=== PATIENT | male | born 1985 | race American Indian/Alaskan Native ===

== ENCOUNTER → 2022-06-17 12:58 | Outpatient (BNVA) | payer OTHER, SELFPAY | PROVIDERS: PCP Internal Medicine; Visit Provider Physician Assistant | DX: M25.69 Stiffness of other specified joint, not elsewhere classified (principal); M51.36 Other intervertebral disc degeneration, lumbar region | CPT/HCPCS: 99212 ==

== ENCOUNTER 2022-07-16 12:54 | Outpatient (REF) | payer OTHER, SELFPAY ==
--- NOTE | ~2022-07-16 | XR_ITS ---
EXAMINATION: XR LUMBOSACRAL SPINE WITH OBLIQUES CLINICAL INFORMATION: Intervertebral disc degeneration lumbar region. COMPARISON: None available. TECHNIQUE: AP, both oblique, and lateral views of the lumbar spine. Lateral view of the lumbosacral junction. FINDINGS: There are total disc replacements at L4-L5 and L5-S1. Bone alignment is normal. No instability on flexion views is seen. Disc spaces are otherwise normal. No fracture or dislocation. XR/XR lumbar spine 4V min IMPRESSION: Total disc replacements at L4-L5 and L5-S1. No instability on flexion-extension views.
== END 2022-07-16 12:55 | disposition home or self-care (01) ==
LOC: HO.HOSX 12:54
PROVIDERS: Visit Provider Neurological Surgery
DX: M51.36 Other intervertebral disc degeneration, lumbar region (principal)
CPT/HCPCS: 72110; 99212

== ENCOUNTER 2022-08-15 08:59 | Outpatient (REF) | payer OTHER, SELFPAY ==
--- NOTE | ~2022-08-15 | XR_ITS ---
EXAMINATION: XR LUMBOSACRAL SPINE WITH OBLIQUES CLINICAL INFORMATION: Intervertebral disc degeneration COMPARISON: 07/16/2022 TECHNIQUE: AP, both oblique, and lateral views of the lumbar spine. Lateral view of the lumbosacral junction. FINDINGS: Patient is status post total discs replacement with prosthesis at the level of L4-L5 and L5-S1. There is straightening of lumbar lordosis. Vertebral bodies are well aligned and the rest of discs are well preserved. Pedicles are intact. Soft tissues unremarkable. XR/XR lumbar spine 4V min IMPRESSION: Well-positioned discs prosthesis.
== END 2022-08-15 09:00 | disposition home or self-care (01) ==
LOC: HO.HOSX 08:59
PROVIDERS: Visit Provider Physician Assistant
DX: M51.36 Other intervertebral disc degeneration, lumbar region (principal)
CPT/HCPCS: 72110

== ENCOUNTER 2022-12-24 13:12 | Outpatient (REF) | payer MEDICARE, MEDICAID, SELFPAY ==
--- NOTE | ~2022-12-24 | XR_ITS ---
EXAMINATION: XR LUMBOSACRAL SPINE WITH OBLIQUES CLINICAL INFORMATION: Disc degeneration COMPARISON: 08/15/2022, 07/29/2022 TECHNIQUE: AP, lateral views of the lumbar spine and lumbosacral junction inclusive of flexion and extension views. 4 views total. FINDINGS: Mild levoscoliosis of the lumbar spine. Redemonstration of total disc replacements at L4-L5 and L5-S1. Disc spaces are otherwise preserved. Alignment preserved on flexion and extension views. XR/XR lumbar spine 4V min IMPRESSION: Total disc replacements at L4-L5 and L5-S1. Alignment preserved on flexion and extension views.
== END 2022-12-24 13:13 | disposition home or self-care (01) ==
LOC: HO.HOSX 13:12
PROVIDERS: PCP Internal Medicine; Visit Provider Neurological Surgery
DX: M51.36 Other intervertebral disc degeneration, lumbar region (principal)
CPT/HCPCS: 72110; 99212

== ENCOUNTER 2022-12-24 13:12 | Outpatient (AMB) | payer MEDICARE, MEDICAID, SELFPAY ==
--- NOTE | 2022-12-24 13:21 | MHC.OFFVIS ---
Intake Intake Visit Reasons: Back pain Junior Engineer Required: No Assessment & Plan Assessment & Plan (1) Lumbar degenerative disc disease: Code(s): M51.36 - Other intervertebral disc degeneration, lumbar region Plan Dear colleague On 12/24/2022, saw for 6 months follow-up your patient Magda for kishor jama. He status post total disc replacement L5-S1 and L4-5 for intractable low back pain. He is doing very well. He had a recent fall from the couch which gave him pain on the outside of his hips right more than left. I told him that this should resolve on its own. Today's x-ray showed good position of the disc prosthesis. He will follow-up in 6 months with an x-ray. Jacoby Anne MD, PhD Spine Fellowship Trained Neurosurgeon Director, [facility] Orders: Orders XR lumbar spine 4V min Today M51.36 - Other intervertebral disc degeneration, lumbar region Coding Level of Care Code Est Pt Level 2 (07385) Diagnoses Lumbar degenerative disc disease M51.36
== END 2022-12-24 13:55 | disposition home or self-care (01) ==
PROVIDERS: PCP Internal Medicine; Visit Provider Neurological Surgery
DX: M51.36 Other intervertebral disc degeneration, lumbar region (principal)
CPT/HCPCS: 99212

== ENCOUNTER 2023-01-16 15:34 | Outpatient (REF) | payer MEDICARE, SELFPAY | END 2023-01-16 15:35 | disposition home or self-care (01) | LOC: HO.HOSX 15:34 | PROVIDERS: Visit Provider Neurological Surgery | DX: Z13.89 Encounter for screening for other disorder (principal) ==

== ENCOUNTER 2023-06-03 13:18 | Outpatient (AMB) | payer MEDICARE, MEDICAID, SELFPAY ==
--- NOTE | 2023-06-03 13:56 | A.SPINEOV_ITS ---
Intake Intake Visit Reasons: 6 month f/u with Xray Intake Note: Mr. Patel is here today for 6 month F/u Consulting Services Project Manager Required: No Assessment & Plan Assessment & Plan (1) S/P lumbar spinal arthrodesis: Code(s): Z98.1 - Arthrodesis status Plan Kishor comes in today as a follow-up patient after having a previous L4-5 and L5-S1 complete arthrodesis completed by our service. He did very well postoperatively but had a fall that exacerbated some radiculopathy in his lower extremities. As a result of this Dr. Anne prescribed him the tincture of time, hoping that this just exacerbated some residual pain. The patient was seen today after 6 months and is doing very well. He reports that his pain has reduced down to what he describes as a 2/10, he is regained much of his mobility. He no longer suffers from shooting radiculopathy down his legs. He states that this is the 1st time in many years that his pain has been under a 5/10. 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 I also reviewed his x-ray imaging during his visit today, which shows stable placement of arthrodesis at L4-5 and L5-S1. No change from previous imaging. Total amount of time spent in this visit was 20 minutes in discussion of symptoms, X-ray imaging results and subsequent plan of care Miguel A Anne MD,PhD [facility] Coding Level of Care Code Global (91194) Diagnoses S/P lumbar spinal arthrodesis Z98.1
== END 2023-06-03 14:09 | disposition home or self-care (01) ==
PROVIDERS: PCP Internal Medicine; Visit Provider Neurological Surgery
DX: Z98.1 Arthrodesis status (principal)
CPT/HCPCS: 99213

== ENCOUNTER → 2023-06-03 13:18 | Outpatient (BNVA) | payer MEDICARE, MEDICAID, SELFPAY | PROVIDERS: Visit Provider Neurological Surgery ==

== ENCOUNTER 2023-06-03 13:21 | Outpatient (REF) | payer MEDICARE, MEDICAID, SELFPAY ==
--- NOTE | ~2023-06-03 | XR_ITS ---
EXAMINATION: XR LUMBOSACRAL SPINE WITH OBLIQUES CLINICAL INFORMATION: Low back pain. COMPARISON: Lumbar spine 12/24/2022. TECHNIQUE: AP, lateral, flexion and extension views of the lumbar spine. Lateral view of the lumbosacral junction. FINDINGS: There is maintained lumbar lordosis. There are multiple disc prosthesis at the L4-L5 and L5-S1 disc levels. The rest of the disc heights are normal. On flexion and extension views, there is no significant change in the prosthesis alignment compared to neutral position. The rest the of disc levels are unremarkable. The vertebral heights and alignment is maintained normal. No lytic or sclerotic process seen. Paravertebral soft tissues are normal. XR/XR lumbar spine 4V min IMPRESSION: Moveable disc prosthesis at the L4-L5 and L5-S1 disc levels. There is no significant change in alignment of the prosthesis on flexion and extension views. No osseous listhesis seen at any of the [place] disc levels.
== END 2023-06-03 13:22 | disposition home or self-care (01) ==
LOC: HO.HOSX 13:21
PROVIDERS: Visit Provider Neurological Surgery
DX: M51.36 Other intervertebral disc degeneration, lumbar region (principal); Z98.1 Arthrodesis status
CPT/HCPCS: 72110; 99212

== ENCOUNTER 2024-08-18 13:57 | Outpatient (AMB) | payer MEDICARE, MEDICAID, SELFPAY ==
--- NOTE | 2024-08-18 14:00 | A.SPINEOV_ITS ---
Intake Visit Reasons: follow up Intake Note: Mr. Patel is here today for a F/u. 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 He underwent L4-5, L5-S1 artificial disc replacement a few years ago. He was taking a car ride a few weekends ago and had tremendous amounts of pain afterwards from prolonged sitting. It seems to have eased off a bit now. No pain radiating down the legs. He is more comfortable and at this point is mostly on the mend but was very worried when it happened. He still does get chronic low back pain with occasional flare-ups but this 1 was particularly worse. His exam is otherwise benign with no motor deficits in his gait is normal. I reassured him that this might just be something he will deal with from time to time with prolonged sitting. I did give him a note to get out of Jury duty because of the prolonged sitting that will be required. If the pain continues, we can always get set of x-rays were consider an MRI. Total amount of time spent in this visit was 20 minutes in discussion of symptoms, and subsequent plan of care Daniele Anne MD,PhD [facility] Coding Level of Care Code Est Pt Level 3 (52250) Diagnoses Lumbar degenerative disc disease M51.36
--- OUTSIDE RECORDS SUMMARY | 2024-08-18 16:33 | XMS_ITS | Clinical Summary ---
Author Organization [address] Address [address] [place] [phone] Phone Care Team Providers Care Manager Of Information Name Role Phone Jose G Laurent MD Primary Care Provider Allergies Active Allergy Reactions Criticality Noted Date Comments Levonorgestrel-Ethinyl Estrad 2008 Medications acetaminophen (TYLENOL 8 HOUR) 650 mg 8 hr tablet Take 1 tablet (650 mg total) by mouth every 8 (eight) hours if needed. 06/22/2023 Active cholecalciferol (VITAMIN D-3) 50 mcg (2,000 unit) tablet Take 1 tablet (2,000 Units total) by mouth 3 (three) times a week. 06/22/2023 Active gabapentin (NEURONTIN) 300 mg capsule Take 1 capsule (300 mg total) by mouth 2 (two) times a day. 60 capsule 1 02/25/2024 Active cyclobenzaprine (FLEXERIL) 10 mg tablet Take 1 tablet (10 mg total) by mouth at bedtime as needed for muscle spasms. 30 tablet 04/04/2024 Active ibuprofen (ADVIL,MOTRIN) 600 mg tablet TAKE 1 TABLET BY MOUTH EVERY 8 HOURS NEEDED FOR PAIN 270 tablet 1 05/31/2024 Active ergocalciferol (VITAMIN D-2) 1,250 mcg (50,000 unit) capsule Take 1 capsule (50,000 Units total) by mouth 1 (one) time per week. 12 capsule 05/17/2024 08/10/19 25 Active Problems Problem Noted Date Diagnosed Date Atypical mole 01/19/2023 Vitamin D deficiency 01/19/2023 Insomnia 01/19/2023 Spondylosis of lumbar region without myelopathy or radiculopathy 01/19/2023 Asthma 01/29/2017 Lumbar disc herniation with radiculopathy 2016 Immunizations Name Administration Dates Next Due Tdap Tetanus diptheria acell ular pertussis (Boostrix; Adacel) 7yo and older 08/23/2018 Surgical History Surgery Date Site/Laterality Comments OTHER SURGICAL HISTORY 2016 PROCEDURE: HISTORY OTHER; COMMENT: Lumbar disc surgery Dr. barakat 2016 BACK SURGERY PROCEDURE: HISTORICAL BACK SURGERY Medical History Medical History Date Comments Asthma 01/29/2017 DX:Asthma Backache DX:Backache Family History Medical History Relation Name Comments Hypertension Father Asthma Mother Other: dvt Paternal Grandmother Diabetes Neg Hx Other cancer Neg Hx Relation Name Status Comments Father Alive Mother Alive Paternal Grandmother Alive Social History Tobacco Use Types Packs/Day Years Used Date Smoking Tobacco: Every Day Cigarettes Smokeless Tobacco: Never Tobacco Cessation:Ready to Q uit: Not Asked; Counseling Given: Not Answered Alcohol Use Standard Drinks/Week Comments No 0 (1 standard drink = 0.6 oz pur e alcohol) Sex and Gender Information Value Date Recorded Sex Assigned at Male 05/31/2024 8:42 PM EDT Legal Sex Male 3:49 AM EST Gender Identity Male 05/31/2024 8:42 PM EDT Sexual Orientation Straight 05/31/2024 8: 42 PM EDT Obstetrics History Last Filed Vital Signs Vital Sign Reading Time Taken Comments Blood Pressure 100/70 04/04/2024 4:04 PM EST Pulse 76 04/04/2024 3:36 PM EST Temperature 36.6 ??C (97.8 ??F) 04/04/2024 3:36 PM ES T Respiratory Rate 14 04/04/2024 3:36 PM EST Oxygen Saturation - - Inhaled Oxygen Concentration - - Weight 56.2 kg (124 lb) 04/04/2024 3:36 PM EST Height 170.2 cm (5' 7 ) 06/22/2023 12:37 PM EDT Body Mass Index 19.42 06/22/2023 12:37 PM EDT Plan of Treatment Upcoming Encounters Date Type Department Care Team (Late st Contact Info) Description 08/29/2024 9:45 AM EDT Office Visit Adult Medicine [address] [phone] Roma Maxwell PA [address] [place] [address] 04/10/2025 4:00 PM EST Office Visit Adult [address] [phone] Roma Maxwell PA [address] [place] [address] Health Maintenance Due Date Last Done Comments Hepatitis B Vaccines (1 of 3 - 19+ 3-dose series) 2004 Pneumococcal Vaccine: Pediatrics (0 to 5 Years) and At-Risk Patients (6 to 64 Years) (1 of 2 - PCV) 2004 HIV Screening 02/16/2022 Hepatitis C Screening 02/16/2022 Medicare Annual Wellness Visit 02/16/2022 Social Influencers of Health Screening 02/16/2022 Depression Screening 04/25/2023 04/25/2022 COVID-19 Vaccine ( - 2023-2 5 season) 2023 Influenza Vaccine (Season Ended) 2024 DTaP,Tdap,and Td Vaccines (2 - Td or Tdap) 08/23/2028 08/23/2018 Cholesterol Screening (Lipid Panel) 05/13/2029 05/13/2024, 10/01/2022 HIB Vaccines Aged Out No longer eligi ble based on patient's age to complete this topic HPV Vaccines Aged Out No longer eligi ble based on patient's age to complete this topic Hepatitis A Vaccines Aged Out No long er eligible based on patient's age to complete this topic IPV Vaccines Aged Out No longer eligi ble based on patient's age to complete this topic MMR Vaccines Aged Out No longer eligi ble based on patient's age to complete this topic Meningococcal ACWY Vaccine Aged Out N o longer eligible based on patient's age to complete this topic Meningococcal B Vaccine Aged Out No l onger eligible based on patient's age to complete this topic RSV Immunization Patients Under 20 months Aged Out No longer eligible b ased on patient's age to complete this topic Varicella Vaccines Aged Out No longer eligible based on patient's age to complete this topic Procedures Procedure Name Priority Date/Time Associated Diagnosis Comments LIPID PANEL WITH REFLEX TO DIRECT LDL Routine 05/13/2024 9:20 AM EST Adult general medical examination Vitamin D deficiency Screening for diabetes mellitus Screening cholesterol level Mixed hyperlipidemia DEPRESSION SCREENING Routine 04/25/2022 from Last 3 Months or Most Recently Relevant to Health Maintenance Results * Lipid panel with reflex to direct LDL (05/13/2024 9:20 AM EST) Cholesterol 170 0 - 200 mg/dL LAB CHEMISTRY METHOD 05/13/2024 4:07 PM EST [facility] Triglycerides 91 0 - 150 mg/dL LAB CHEMISTRY METHOD 05/13/2024 4:07 PM EST [facility] HDL 54 >=40 mg/dL LAB CHEMISTRY METHOD 05/13/2024 4:07 PM [facility] LDL Calculated 98 0 - 100 mg/dL LAB CHEMISTRY METHOD 05/13/2024 4:07 PM EST [facility] VLDL Cholesterol Robinson 18.2 mg/dL LAB CHEMISTRY METHOD 05/13/2024 4:07 PM [facility] Non HDL Chol. (LDL+VLDL) 116 <145 mg/dL LAB CHEMISTRY METHOD 05/13/2024 4:07 PM [facility] Chol/HDL Ratio 3.1 0.0 - 4.4 LAB CHEMISTRY METHOD 05/13/2024 4:07 PM [facility] Blood Venous blood specimen / Unknown Venipuncture / Unknown 05/13/2024 9:20 AM EST 05/13/2024 9:20 AM EST Roma COWAN LAB BLOOD ORDERABLES Fin al Result [facility] [address] [place] [address], * Depression Screening (04/25/2022) Depression Screening abstracted us Historical Provider HEALTH MAINTENANCE Final Result from Last 3 Months or Most Recently Relevant to Health Maintenance Insurance MEDICAID - [place] [employer] MEDICARE Care Teams Manager Of Information Relationship Specialty Start Date End Date Jose G Laurent MD [address] [place] [phone] PCP - General 02/20/22
== END 2024-08-18 14:44 | disposition home or self-care (01) ==
LOC: HO.HNS 13:58
PROVIDERS: PCP Internal Medicine; Visit Provider Physician Assistant
DX: M51.369 Other intervertebral disc degeneration, lumbar region without mention of lumbar back pain or lower extremity pain (principal)
CPT/HCPCS: 99213

== ENCOUNTER → 2024-08-18 13:57 | Outpatient (BNVA) | payer MEDICARE, MEDICAID, SELFPAY | PROVIDERS: PCP Internal Medicine; Visit Provider Physician Assistant | DX: M51.360 Other intervertebral disc degeneration, lumbar region with discogenic back pain only (principal) | CPT/HCPCS: 99212 ==

== ENCOUNTER 2025-03-13 13:41 | Outpatient (AMB) | payer MEDICARE, MEDICAID, SELFPAY ==
--- NOTE | 2025-03-13 13:44 | A.SPINEOV_ITS ---
Intake Visit Reasons: LBP Intake Note: Mr. Patel is here today c/o low back pain. 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 He underwent a total disc arthroplasty of the lumbar spine at L4-5 and L5-S1 about 3 years ago. He reports that he was reaching down to help his children out of a room and just lightly pulled 1 of the children and immediately felt acute onset of back pain. He describes it has being up in his ribs, radiating out to the front, a squeezing sensation like could not catch his breath. Then in his legs would not hold him up and his son had to help him get to a spot where he could sit down. Gradually the symptoms went away after he tried some steroids and anti-inflammatories. Things returned mostly to normal, he is still having some pain more in the lumbar region and if he takes her real deep breath he can feel the pain around his ribs. On exam he looks comfortable, he can stand and ambulate without any focal deficits. I sent him for set of x-rays today and the implants look good, there is no shifting or signs that anything has moved from the position it was during his last x-ray about a year ago. There was no signs of auto fusion. The disc above his implants looks great and I do not see any evidence of any adjacent segment issues. I think what happened is that he strained a muscle in the middle of his back and it cause him inflammation around the front of his ribs, and down into his low back. It seems to be better now in his x-rays are reassuring. He has had a similar event happen previously, and it went away on its own as well. I think this will go away similarly. Total amount of time spent in this visit was 20 minutes in discussion of symptoms, lumbar x-ray imaging results and subsequent plan of care Daniele Anne MD,PhD [facility] Orders: Orders XR lumbar spine 4V min Today M51.36 - Other intervertebral disc degeneration, lumbar region, Z98.1 - Arthrodesis status Coding Level of Care Code Est Pt Level 3 (20626) Diagnoses Lumbar degenerative disc disease M51.36 S/P lumbar spinal arthrodesis Z98.1
--- OUTSIDE RECORDS SUMMARY | 2025-03-13 15:54 | XMS_ITS ---
Author Name [facility] Organization Unknown Care Team Organization Name Specialty Phone Email Start Date End Da te [facility] Jose G Laurent Primary Care 05/21/202210/14 [facility] Beti Hinton Primary Care 01/21/2022
--- OUTSIDE RECORDS SUMMARY | 2025-03-13 15:54 | XMS_ITS | Clinical Summary ---
Author Organization [facility], Address [address] [place] [address] Phone Care Team Providers Care Product Support Engineer Name Role Phone Jose G Laurent MD Primary Care Provider [phone] Allergies Active Allergy Reactions Criticality Noted Date Comments Pollen Extract 05/13/2022 Medications gabapentin (NEURONTIN) 300 MG capsule Take 300 mg by mouth 03/07/2022 Active acetaminophen (TYLENOL 8 HOUR) 650 MG 8 hr tablet Take 1 tablet by mouth every 8 (eight) hours if needed 03/07/2022 Active ibuprofen (ADVIL,MOTRIN) 800 MG tablet Take 800 mg by mouth in the morning and 800 mg in the evening and 800 mg before bedtime. 07/23/2020 Active methocarbamol (ROBAXIN) 500 MG tablet Take 1 tablet by mouth in the morning and 1 tablet at noon and 1 tablet in the evening. 03/07/2022 Active amitriptyline (ELAVIL) 25 MG tablet Take 25 mg by mouth 04/25/2022 Active gabapentin (NEURONTIN) 300 MG capsule Take 300 mg by mouth 05/09/2022 Active ibuprofen (ADVIL,MOTRIN) 600 MG tablet Take 600 mg by mouth every 6 (six) hours if needed 05/02/2022 Active nicotine (NICODERM CQ) 14 MG/24HR PLACE 1 PATCH ONTO THE SKIN EVERY 24 HOURS. 04/29/2022 Active Active Problems Problem Noted Date Diagnosed Date H/O Spinal surgery 12/28/2017 Tobacco user 12/28/2017 Asthma 01/29/2017 Lumbar disc prolapse with radiculopathy 06/13/19 17 Social History Tobacco Use Types Packs/Day Years Used Date Smoking Tobacco: Never Assessed Sex and Gender Information Value Date Recorded Sex Assigned at Not on file Legal Sex Male 11:03 AM EST Gender Identity Not on file Sexual Orientation Not on file Last Filed Vital Signs Vital Sign Reading Time Taken Comments Blood Pressure 127/79 05/15/2022 10:37 AM EST Pulse 78 05/15/2022 10:37 AM EST Temperature 36.3 C (97.4 F) 05/15/2022 10:37 AM EST Respiratory Rate - - Oxygen Saturation 100% 05/15/2022 10:37 AM EST Inhaled Oxygen Concentration - - Weight 55.3 kg (122 lb) 05/15/2022 10:37 AM EST Height 170.2 cm (5' 7 ) 05/15/2022 10:37 AM EST Body Mass Index 19.11 05/15/2022 10:37 AM EST Plan of Treatment Health Maintenance Due Date Last Done Comments Hepatitis B Vaccine (1 of 3 - 19+ 3-dose series) 2004 Influenza Vaccine (#1) 2024 Pneumococcal Vaccine: Peds ( 0 to 5 Years) and At-Risk Patients (6 to 49 Years) Aged Out No longer eligible b ased on patient's age to complete this topic Insurance [employer] Care Teams Product Support Engineer Relationship Specialty Start Date End Date Jose G Laurent MD [address] [place] [address] PCP - [facility] 03/19/22
--- OUTSIDE RECORDS SUMMARY | 2025-03-13 15:54 | XMS_ITS | Clinical Summary ---
Author Organization [facility] [address] [facility] Address [address] [place] [phone] Phone Care Team Providers Care Photographer Scientific Name Role Phone Jose G Laurent MD Primary Care Provider Allergies Active Allergy Reactions Criticality Noted Date Comments Levonorgestrel-Ethinyl Estrad 2008 Medications acetaminophen (TYLENOL 8 HOUR) 650 mg 8 hr tablet Take 1 tablet (650 mg total) by mouth every 8 (eight) hours if needed. 4 Active gabapentin (NEURONTIN) 300 mg capsule Take 1 capsule (300 mg total) by mouth 2 (two) times a day. 60 capsule 1 5 Active cyclobenzaprin e (FLEXERIL) 10 mg tablet Take 1 tablet (10 mg total) by mouth at bedtime as needed for muscle spasms. 30 tablet 3 5 Active cholecalcifero l (VITAMIN D-3) 50 mcg (2,000 unit) tablet Take 1 tablet (2,000 Units total) by mouth 1 (one) time each day. 90 each 1 5 Active ibuprofen (ADVIL,MOTRIN) 600 mg tablet TAKE 1 TABLET BY MOUTH EVERY 8 HOURS NEEDED FOR PAIN 270 tablet 5 Active ibuprofen (ADVIL,MOTRIN) 600 mg tablet Take 1 tablet (600 mg total) by mouth every 8 (eight) hours if needed for moderate pain. for pain 270 tablet 06/16/ 025 Discontinued Active Problems Problem Noted Date Diagnosed Date Atypical mole 01/19/2023 Vitamin D deficiency 01/19/2023 Insomnia 01/19/2023 Spondylosis of lumbar region without myelopathy or radiculopathy 01/19/2023 Asthma 01/29/2017 Lumbar disc herniation with radiculopathy 2016 Immunizations Immunization Administration Dates Next Due Tdap Tetanus diptheria [...] Tobacco: Every Day Cigarettes Smokeless Tobacco: Never Alcohol Use Standard Drinks/Week Comments No 0 (1 standard drink = 0.6 oz pur e alcohol) Sex and Gender Information Value Date Recorded Sex Assigned at Male 05/31/2024 8:42 PM EDT Legal Sex Male 3:49 AM EST Gender Identity Male 05/31/2024 8:42 PM EDT Sexual Orientation Straight 05/31/2024 8: 42 PM EDT Last Filed Vital Signs Vital Sign Reading Time Taken Comments Blood Pressure 98/78 10/31/2024 10:53 AM EDT Pulse 88 10/31/2024 10:53 AM EDT Temperature 35.9 C (96.6 F) 10/31/2024 10:53 AM EDT Respiratory Rate 16 10/31/2024 10:53 AM EDT Oxygen Saturation - - Inhaled Oxygen Concentration - - Weight 53.5 kg (118 lb) 10/31/2024 10:53 AM EDT Height 170.2 cm (5' 7 ) 10/31/2024 10:53 AM EDT Body Mass Index 18.48 10/31/2024 10:53 AM EDT Plan of Treatment Upcoming Encounters Date Type Department Care Team (Late st Contact Info) Description 04/10/2025 4:00 PM EST Office Visit Adult Medicine [address] [phone] Roma Maxwell PA [address] [place] [address] Health Maintenance Due Date Last Done Comments Hepatitis B Vaccines (1 of 3 - 19+ 3-dose series) 2004 Pneumococcal Vaccine: Pediatrics (0 to 5 Years) and At-Risk Patients (6 to 49 Years) (1 of 2 - PCV) 2004 HPV Vaccines (1 - 3-dose SCD M series) 2012 HIV Screening 02/16/2022 Hepatitis C Screening 02/16/2022 Medicare Annual Wellness Visit 02/16/2022 Social Influencers of Health Screening 02/16/2022 Depression Screening 03/16/2024 04/25/2022 COVID-19 Vaccine (1 - 2024-2 6 season) 2024 Influenza Vaccine (#1) 2024 DTaP,Tdap,and Td Vaccines (2 - Td or Tdap) 08/23/2028 08/23/2018 Cholesterol Screening (Lipid Panel) 05/13/2029 05/13/2024, 10/01/2022 RSV Immunization Adult Patients (1 - 1-dose 75+ series) 2060 HIB Vaccines Aged Out No longer eligi [...] LAB CHEMISTRY METHOD 05/13/2024 4:[address] [facility] Triglycerides 91 0 - 150 mg/dL LAB CHEMISTRY METHOD 05/13/2024 4:[address] [facility] HDL 54 >=40 mg/dL LAB CHEMISTRY METHOD 05/13/2024 4:[address] [facility] LDL Calculated 98 0 - 100 mg/dL LAB CHEMISTRY METHOD 05/13/2024 4:[address] [facility] VLDL Cholesterol Robinson 18.2 mg/dL LAB CHEMISTRY METHOD 05/13/2024 4:[address] [facility] Non HDL Chol. (LDL+VLDL) 116 <145 mg/dL LAB CHEMISTRY METHOD 05/13/2024 4:[address] [facility] Chol/HDL Ratio 3.1 0.0 - 4.4 LAB CHEMISTRY METHOD 05/13/2024 4:[address] [facility] Blood Venous blood specimen / Unknown Venipuncture / Unknown 05/13/2024 9:20 AM EST 05/13/2024 9:20 AM EST [facility] BLOOD ORDERABLES Fin al Result [facility] [address] [place] [address], * Depression Screening (04/25/2022) Depression Screening abstracted us Historical Provider MD HEALTH MAINTENANCE Final Result from Last 3 Months or Most Recently Relevant to Health Maintenance Insurance MEDICAID - [place] [employer] MEDICARE Care Teams Photographer Scientific Relationship Specialty Start Date End Date Jose G Laurent MD [address] [place] [phone] PCP - General 02/20/22
== END 2025-03-13 14:27 | disposition home or self-care (01) ==
LOC: HO.HNS 13:42
PROVIDERS: PCP Internal Medicine; Visit Provider Physician Assistant
DX: M51.369 Other intervertebral disc degeneration, lumbar region without mention of lumbar back pain or lower extremity pain (principal); Z98.1 Arthrodesis status
CPT/HCPCS: 99213

== ENCOUNTER 2025-03-13 13:41 | Outpatient (REF) | payer MEDICARE, MEDICAID, SELFPAY ==
--- NOTE | ~2025-03-13 | XR_ITS ---
EXAMINATION: Lumbar spine 4 views. CLINICAL INDICATION: Flexible disc prosthesis at L4-5 and L5-S1 disc levels. COMPARISON: Lumbar spine 06/03/2023. FINDINGS: A flexible disc prosthesis is visualized at L4-5 and L5-S1 disc levels. On flexion-extension views there is normal movement seen at the L4-5 disc level very little movement is seen at L5-S1 disc level. There is minimal levoscoliosis of lower lumbar spine centered at the L4-5 disc level. No lytic or sclerotic process seen. SI joints are symmetrical. The soft tissues are normal. Flexible disc prosthesis L4-5 and L5-S1 disc level. There is mild flexion and extension movement seen at the L4-5 disc level. No movement seen in the L5-S1 disc level There is minimal scoliosis centered at L4-5 disc, stable. No major change from previous exam 06/03/2023 Electronically signed by: James Travis MD 03/13/2025 02:20 PM [facility]
== END 2025-03-13 13:42 | disposition home or self-care (01) ==
LOC: HO.HOSX 13:41
PROVIDERS: PCP Internal Medicine; Visit Provider Physician Assistant
DX: M51.360 Other intervertebral disc degeneration, lumbar region with discogenic back pain only (principal); Z98.1 Arthrodesis status
CPT/HCPCS: 72110; 99212

== ENCOUNTER → 2025-03-13 14:04 | Outpatient (BNV) | payer MEDICARE, MEDICAID, SELFPAY | PROVIDERS: PCP Internal Medicine; Visit Provider Radiology Diagnostic Radiology | DX: M51.369 Other intervertebral disc degeneration, lumbar region without mention of lumbar back pain or lower extremity pain (principal) | CPT/HCPCS: 72110 ==